=== PATIENT | female | born 1995 | race Caucasian/White ===

== ENCOUNTER 2021-10-18 11:07 | Outpatient (CLI) | payer OTHER ==
[2021-10-18] MEDS ORDERED: PRENATAL TABLE1 EAC3 PO (12:59)
== END 2021-10-19 09:12 | disposition home or self-care (01) ==
LOC: OBS/DEL 11:07
PROVIDERS: ATTEND Obstetrics & Gynecology
DX: O47.02 False labor before 37 completed weeks of gestation, second trimester (principal); Z3A.17 17 weeks gestation of pregnancy; R10.2 Pelvic and perineal pain

== ENCOUNTER 2021-12-15 13:00 | Outpatient (CLI) | payer OTHER ==
[~2021-12-15 13:00] MED LIST: PRENATAL TABLE1 EAC3 PO
== END 2021-12-16 08:10 | disposition home or self-care (01) ==
LOC: OBS/DEL 13:00
PROVIDERS: ATTEND Obstetrics & Gynecology
DX: O23.42 Unspecified infection of urinary tract in pregnancy, second trimester (principal); N39.0 Urinary tract infection, site not specified; Z3A.25 25 weeks gestation of pregnancy

== ENCOUNTER 2022-03-18 11:17 | Inpatient (IN) | payer OTHER ==
[~2022-03-18] VITALS: Ht 172.7 cm; Wt 2.7 kg
[2022-03-23] MEDS ORDERED: PRENATAL TABLE1 EAC1 PO (05:36)
[2022-03-23] MEDS ORDERED: IRON325 MG PO (05:36)
[2022-03-26] MEDS ORDERED: IBUPROFEN800 MG PO (07:03)
[2022-03-26] MEDS ORDERED: SENOKOT8.6 M1 PO (07:03)
[2022-03-26] MEDS ORDERED: SIMETHICONE125 M1 PO (07:04)
== END 2022-03-26 09:28 | disposition home or self-care (01) | DRG 785 ==
LOC: O/R 03-23 05:11 → OB/GYN 03-23 05:11 → LDR 03-23 10:30 → OB/GYN 03-23 13:03
PROVIDERS: ADMIT Obstetrics & Gynecology; ATTEND Obstetrics & Gynecology
PROC: 0UB70ZZ Excision of Bilateral Fallopian Tubes, Open Approach (ICD-10-PCS; 2022-03-23)
PROC: 4A1HXCZ Monitoring of Products of Conception, Cardiac Rate, External Approach (ICD-10-PCS; 2022-03-23)
PROC: 10D00Z1 Extraction of Products of Conception, Low, Open Approach (ICD-10-PCS; principal; 2022-03-23 12:00)
DX: O34.211 Maternal care for low transverse scar from previous cesarean delivery (principal); O48.0 Post-term pregnancy; Z3A.41 41 weeks gestation of pregnancy; Z37.0 Single live birth; Z20.822 Contact with and (suspected) exposure to COVID-19; Z30.2 Encounter for sterilization